=== PATIENT | male | born 2000 | race Caucasian/White ===

== ENCOUNTER 2019-01-24 19:21 | Emergency (ER) | payer BC ==
[~2019-01-24] VITALS: Ht 180.3 cm; Wt 63.5 kg
[2019-01-24] MEDS ORDERED: PROZAC20 MG PO (19:28)
[2019-01-24 23:21] VITALS: BP 121/65
== END 2019-01-24 23:28 | disposition short-term general hospital (02) ==
LOC: M.ERS 19:21
DX: S12.201A Unspecified nondisplaced fracture of third cervical vertebra, initial encounter for closed fracture (principal); W22.8XXA Striking against or struck by other objects, initial encounter; Y93.39 Activity, other involving climbing, rappelling and jumping off; Y92.89 Other specified places as the place of occurrence of the external cause; Y99.8 Other external cause status